=== PATIENT | female | born 1945 | race Hispanic/Latino ===

== ENCOUNTER 2018-09-14 18:40 | Emergency (ER) | payer MEDICARE ==
[~2018-09-14] VITALS: Ht 144.8 cm; Wt 53.1 kg
--- OUTSIDE RECORDS SUMMARY | 2018-09-14 18:42 | XMS REPORT | Summary of Care ---
Author Organization Unknown Address Unknown Phone Unavailable Encounter HQ Evanntr_kaden(LB) [id number] Date(s): 05/25/14 - 05/25/14 [facility] [address] Discharge Disposition: Home Physician Attending: Petrona Mcnally MD Physician_Referring: Juan R Nguyễn MD Reason for Visit ROUTINE Problem List No data available for this section Allergies, Adverse Reactions, Alerts No data available for this section Medications No data available for this section Medications Administered During Your Visit No data available for this section Immunizations No data available for this section
--- OUTSIDE RECORDS SUMMARY | 2018-09-14 18:42 | XMS REPORT | Summary of Care ---
Author Author [facility] [place] Organization [facility] [place] Address Unknown Phone Unavailable Encounter HQ Amy_kaden(FIN) [phone] Date(s): 06/30/17 - 06/30/17 [facility] [place] [address] [place] [phone] Discharge Disposition: Home or Self Care Attending Physician: Wyatt Cannon DO Vital Signs No data available for this section Problem List Condition Effective Dates Status Health Status Informant Actinic Active keratosis(Confirmed) Benign paroxysmal Active positional vertigo(Confirmed) Chronic gastritis1 02/08/13 Active Helicobacter-associa 09/13/14 Resolved ej gastritis2 Hernia of abdominal 07/20/13 Active wall3 Hip pain, Active bilateral(Confirmed) History of skin Resolved cancer(Confirmed) Bilateral impacted Resolved cerumen(Confirmed) Mixed 02/08/13 Active hyperlipidemia4 Need for Resolved prophylactic vaccination and inoculation against influenza(Confirmed) Osteoarthritis of Active both hips(Confirmed) Osteoporosis5 07/14/13 Active Polyarthralgia(Confi Active rmed) 1Data migrated from [employer] on 01/21/15. 2Data migrated from [employer] on 01/21/15. 3Data migrated from [employer] on 01/21/15. 4Data migrated from [employer] on 01/21/15. 5Data migrated from [employer] on 01/21/15. Allergies, Adverse Reactions, Alerts Substance Reaction Severity Status acetaminophen-codeine1 nausea MO^Moderate Active 1Data migrated from [employer] on 12/22/14. Originally documented as TYLENOL WITH CODEINE #3. nausea Medications No data available for this section Results No data available for this section Immunizations Given and Recorded Vaccine Date Status Refusal Reason Hx influenza vaccine-unspecified1 05/06/14 Given influenza virus vaccine, inactivated2 05/06/14 Given influenza virus vaccine, inactivated3 06/17/13 Given 1Result Comment: done high dose. Migrated from OBS ; Data migrated from [employer] on 09/26/2015. 2Result Comment: fluzone high dose [[id number]]. Migrated from OBS ; Data migrated from [employer] on 09/26/2015. 3Result Comment: fluzone (>3 yrs.) [[id number]]. Migrated from OBS ; Data migrated from [employer] on 09/26/2015. Procedures Procedure Date Related Diagnosis Body Site Esophagogastroduodenoscopy and dilation of 04/24/15 esophageal stricture1 Bilateral tubal ligation Cholecystectomy Excision of melanoma2 1GE Junction stricture, large hiatal hernia, gastritis 2left eyebrow Social History Social History Type Response Substance Abuse Use: None. Exercise 1 Employment/School Status: Retired. Work/School description: Retired from [employer]. Alcohol Never Smoking Status Never smoker; Exposure to Tobacco Smoke None; Cigarette Smoking Last 365 Days No; Reg Smoking Cessation Counseling No 1none Assessment and Plan No data available for this section
--- OUTSIDE RECORDS SUMMARY | 2018-09-14 18:42 | XMS REPORT | Summary of Care ---
Author Author [facility] [place] Organization [facility] [place] Address Unknown Phone Unavailable Encounter HQ Amy_kaden(FIN) [phone] Date(s): 01/12/16 - 01/12/[address] [facility] [place] [address] [place] [address]- [facility] [[email or web address]] [phone] Discharge Disposition: Home Attending Physician: Wyatt Cannon DO Vital Signs [...] No data available for this section Immunizations Vaccine Date Refusal Reason Hx influenza vaccine-unspecified1 05/06/14 influenza virus vaccine, inactivated2 05/06/14 influenza virus vaccine, inactivated3 06/17/13 1Result Comment: done high dose. Migrated from OBS ; Data migrated from [employer] on 09/26/2015. 2Result Comment: fluzone high dose [[id number]]. Migrated from OBS ; Data migrated from [employer] on 09/26/2015. 3Result Comment: fluzone (>3 yrs.) [[id number]]. Migrated from OBS ; Data migrated from [employer] on 09/26/2015. Procedures Procedure Date Related Diagnosis Body Site Esophagogastroduodenoscopy and dilation of 04/24/15 esophageal stricture1 Bilateral tubal ligation Cholecystectomy Excision of melanoma2 1GE Junction stricture, large hiatal hernia, gastritis 2left eyebrow Social History Social History Type Response Substance Abuse Use: None. Exercise 1 Employment/School Status: Retired. Work/School description: Retired from [employer]. Alcohol Never Smoking Status Never smoker; Exposure to Tobacco Smoke None; Cigarette Smoking Last 365 Days No; Reg Smoking Cessation Counseling No 1none Assessment and Plan No data available for this section
--- OUTSIDE RECORDS SUMMARY | 2018-09-14 18:42 | XMS REPORT | Continuity of Care Document ---
Author Author [facility] Interface Address Unknown Phone Unavailable Problems Problem Status Onset Date Classification Date Reported Comments Source Z12.31 - ENCNTR SCREEN MAMMOGRAM FOR MA Active 02/06/2017 [facility] [place] Helicobacter-associated gastritis<sup>2</sup> Resolved 09/13/2014 Problem 07/03/2017 Data migrated from [employer] on 01/21/15. [facility] [place] ROUTINE Active 05/19/2014 [place] Hernia of abdominal wall<sup>3</sup> Active 07/20/2013 Problem 07/03/2017 Data migrated from [employer] on 01/21/15. [facility] [place] Osteoporosis<sup>5</sup> Active 07/14/2013 Problem 07/03/2017 Data migrated from [employer] on 01/21/15. [facility] [place] Chronic gastritis<sup>1</sup> Active 02/08/2013 Problem 07/03/2017 Data migrated from [employer] on 01/21/15. [facility] [place] Mixed hyperlipidemia<sup>4</sup> Active 02/08/2013 Problem 07/03/2017 Data migrated from [employer] on 01/21/15. [facility] [place] Actinic keratosis Active Problem 07/03/2017 [facility] [place] Benign paroxysmal positional vertigo Active Problem 07/03/2017 [facility] [place] Hip pain, bilateral Active Problem 07/03/2017 [facility] [place] History of skin cancer Resolved Problem 07/03/2017 [facility] [place] Bilateral impacted cerumen Resolved Problem 07/03/2017 [facility] [place] Need for prophylactic vaccination and inoculation against influenza Resolved Problem 07/03/2017 [facility] [place] Osteoarthritis of both hips Active Problem 07/03/2017 [facility] [place] Polyarthralgia Active Problem 07/03/2017 [facility] [place] Medications Medication Details Route Status Patient Instructions Ordering Provider Order Date Source Allergies, Adverse Reactions, Alerts Substance Category Reaction Severity Reaction type Status Date Reported Comments Source acetaminophen-codeine<sup>1</sup> Assertion nausea MO^Moderate Propensity to adverse reactions to drug Active 02/08/2013 Data migrated from OnLive on 12/22/14. Originally documented as TYLENOL WITH CODEINE #3. nausea LAISHA Arndt Immunizations Immunization Date Given Site Status Last Updated Comments Source Hx influenza vaccine-unspecified<sup>1</sup> 05/06/2014 completed GE Result Comment: done high dose. Migrated from OBS ; Data migrated from OnLive on 09/26/2015. LAISHA Arndt influenza virus vaccine, inactivated<sup>2</sup> 05/06/2014 Left Deltoid completed GE Result Comment: fluzone high dose [[id number]]. Migrated from OBS ; Data migrated from OnLive on 09/26/2015. LAISHA Arndt influenza virus vaccine, inactivated<sup>3</sup> 06/17/2013 Right Deltoid completed GE Result Comment: fluzone (>3 yrs.) [[id number]]. Migrated from OBS ; Data migrated from OnLive on 09/26/2015. LAISHA Arndt Results Order Name Results Value Reference Range Date Interpretation Comments Source Bone Density DXA [employer] MA Bone Density DXA [employer] MA BONE DENSITY ASSESSMENT: 09/04/2018 CLINICAL DATA: Post menopausal and clinical risk for osteoporosis. M81.0 Age related osteoporosis. Age-Related Osteoporosis Without Current Pathological Fracture/M81.0 COMPARISON: 02/18/2017 Right hip using a Hologic unit from [facility] with reported high fracture risk, BMD of 0.586g/cm2, T-score of -2.90, and Z-score of -1.40. 02/18/2017 AP L1-L4 region of spine using a Hologic unit from [facility] with reported high fracture risk, BMD of 0.620g/cm2, T-score of -3.90, and Z-score of -1.80. 02/18/2017 Left hip using a Hologic unit from [facility] with reported high fracture risk, BMD of 0.528g/cm2, T-score of -3.40, and Z-score of -1.80. FINDINGS: Bone density evaluation was performed 09/04/2018 on the right femur neck using a Hologic unit. The BMD average for the exam is 0.565 g/cm2. The T-score is - 2.60 and the Z-score is -0.80. This matches the World Health Organization's criteria for osteoporosis and places the patient at a high risk for fracture. An additional bone density evaluation was performed 09/04/2018 on the left femur neck using a Hologic unit. The BMD average for the exam is 0.421 g/cm2. The T- score is -3.90 and the Z-score is -2.00. This matches the World Health Organization's criteria for osteoporosis and places the patient at a high risk for fracture. An additional bone density evaluation was performed 09/04/2018 on the right hip using a Hologic unit. The BMD average for the exam is 0.596 g/cm2. The T-score is -2.80 and the Z-score is -1.20. Since the previous similar exam of 02/18/2017, there has been a +0.010 or +1.7% change in the BMD value which represents no significant interval change in bone density. This matches the World Health Organization's criteria for osteoporosis and places the patient at a high risk for fracture. An additional bone density evaluation was performed 09/04/2018 on the left hip using a Hologic unit. The BMD average for the exam is 0.533 g/cm2. The T-score is -3.30 and the Z-score is -1.70. Since the previous similar exam of 02/18/2017, there has been a +0.005 or +0.9% change in the BMD value which represents no significant interval change in bone density. This matches the World Health Organization's criteria for osteoporosis and places the patient at a high risk for fracture. An additional bone density evaluation was performed 09/04/2018 on the AP L1-L4 region of spine using a Hologic unit. The BMD average for the exam is 0.609 g/cm2. The T-score is -4.00 and the Z-score is -1.80. Since the previous similar exam of 02/18/2017, there has been a -0.011 or -1.8% change in the BMD value which represents no significant interval change in bone density. This matches the World Health Organization's criteria for osteoporosis and places the patient at a high risk for fracture. IMPRESSION: OSTEOPOROSIS Patient is at high risk for fracture. Patient consult w/primary care provider is recommended. This exam was interpreted at [id number] for MISTY Copeland 15. Theresa Negrete M.D. ms/penrad:09/04/2018 15:20:42 Finger Waver(s): Irina WARNER(R)(M), [facility] 09/04/2018 - - Read by: Theresa Negrete MD Dictated Date/time: 09/04/18 15:20 Electronically Signed by: Theresa Negrete MD 09/04/18 15:20 FINAL REPORT GERMAIN Arndt Brain w/wo contrast MRI Brain w/wo contrast MRI PATIENT NAME: FRED DOSS : 1945; Age: 72 years y/o Female MR: [id number] STUDY: Brain w/wo contrast MRI 06/30/2017 3:17 PM JUNIOR ESTIMATOR ORDERING PHYSICIAN: VINICIUS LASSITER CLINICAL INDICATION: R51 Headache - R51 Headache; COMPARISON: None TECHNIQUE : Multiplanar imaging of the brain was obtained both prior to and after uncomplicated IV administration of 10 mL Dotarem. FINDINGS: BRAIN PARENCHYMA: There is no hemorrhage, mass lesion, extra axial collection, cerebral edema, or mass effect. Diffusion sequences are normal. Brain volume is age-appropriate. There are moderate periventricular and subcortical white matter signal abnormalities without mass effect. There are no cortical signal abnormalities.The cerebellar tonsils are above foramen magnum. The pituitary gland is age-appropriate. There is no abnormal enhancement. CEREBELLOPONTINE REGIONS AND SKULL BASE: The cerebellopontine angles appear unremarkable. No skull base abnormality is seen. VENTRICLES/SULCI/CISTERNS: The ventricles are normal in size and configuration. The basal cisterns are patent. VISUALIZED VESSELS: Major intracranial flow voids are preserved. ORBITS, VISUALIZED PARANASAL SINUSES AND MASTOIDS: Paranasal sinuses are clear. The mastoid air cells are clear. No orbital pathology is seen. IMPRESSION: 1. No intracranial mass lesion or hemorrhage 2. Moderate, nonspecific white matter signal abnormalities likely reflect migraine, chronic small vessel ischemia, or some combination of the two 06/30/2017 - - Read by: Manjit Acosta MD Dictated Date/time: 07/01/17 01:14 Electronically Signed by: Manjit Acosta MD 07/01/17 01:16 FINAL REPORT LAISHA Arndt Bone Density DXA Dual Energy MA Bone Density DXA Dual Energy MA - Bone Density DXA Dual Energy MA BONE DENSITY EVALUATION: 02/18/2017 CLINICAL DATA: Post menopausal and clinical risk for osteoporosis. COMPARISON: 01/12/2016 Right hip using a Hologic unit from [facility] with reported high fracture risk, BMD of 0.580g/cm2, T-score of -3.00 and Z-score of -1.50. 01/12/2016 Left hip using a Hologic unit from [facility] with reported high fracture risk, BMD of 0.522g/cm2, T-score of -3.40 and Z-score of -1.90. 01/12/2016 AP L1-L4 region of spine using a Hologic unit from [facility] with reported high fracture risk, BMD of 0.604g/cm2, T-score of -4.00 and Z-score of -2.00. FINDINGS: Bone density evaluation was performed 02/18/2017 on the AP L1-L4 region of spine using a Hologic unit. The BMD average for the exam is 0.620 g/cm2. The T-score is -3.90 and the Z-score is -1.80. Since the previous similar exam of 01/12/2016, there has been a +0.016 or +2.6% change in the BMD value which represents no significant interval change in bone density. This matches the World Health Organization's criteria for osteoporosis and places the patient at a high risk for fracture. An additional bone density evaluation was performed 02/18/2017 on the right femur neck using a Hologic unit. The BMD average for the exam is 0.468 g/cm2. The T-score is -3.40 and the Z-score is -1.70. This matches the World Health Organization's criteria for osteoporosis and places the patient at a high risk for fracture. An additional bone density evaluation was performed 02/18/2017 on the right hip using a Hologic unit. The BMD average for the exam is 0.586 g/cm2. The T-score is -2.90 and the Z-score is -1.40. Since the previous similar exam of 01/12/2016, there has been a +0.006 or +1.0% change in the BMD value which represents no significant interval change in bone density. This matches the World Health Organization's criteria for osteoporosis and places the patient at a high risk for fracture. An additional bone density evaluation was performed 02/18/2017 on the left femur neck using a Hologic unit. The BMD average for the exam is 0.408 g/cm2. The T- score is -4.00 and the Z-score is -2.20. This matches the World Health Organization's criteria for osteoporosis and places the patient at a high risk for fracture. An additional bone density evaluation was performed 02/18/2017 on the left hip using a Hologic unit. The BMD average for the exam is 0.528 g/cm2. The T-score is -3.40 and the Z-score is -1.80. Since the previous similar exam of 01/12/2016, there has been a +0.006 or +1.1% change in the BMD value which represents no significant interval change in bone density. This matches the World Health Organization's criteria for osteoporosis and places the patient at a high risk for fracture. IMPRESSION: OSTEOPOROSIS Patient is at high risk for fracture. Professional services are provided by the [facility]. This exam was dictated and interpreted by [id number] for MISTY Greer 15. Theresa Negrete M.D. ms/penrad:02/18/2017 15:08:35 Finger Waver: Irina WARNER(Marion)([place]), [facility] 02/18/2017 - - Read by: Theresa Negrete MD Dictated Date/time: 02/18/17 15:08 Electronically Signed by: Theresa Negrete MD 02/18/17 15:08 FINAL REPORT LAISHA Arndt Breast Mammo Scrn ORAL incl CAD MA Breast Mammo Scrn ORAL incl CAD MA - BREAST MAMMO SCRN ORAL INCL CAD MA BILATERAL DIGITAL SCREENING MAMMOGRAM WITH CAD: 02/18/2017 CLINICAL: Routine/Screening. Current study was evaluated with a Computer Aided Detection (CAD) system. Comparison is made to exams dated: 01/12/2016 mammogram - [facility], 05/25/2014 mammogram - [facility], 04/27/2013 mammogram, 01/07/2012 mammogram, 11/15/2010 mammogram and 09/27/2010 mammogram - [facility]. There are scattered fibroglandular densities in both breasts. There are benign vascular calcifications in both breasts. No significant masses, calcifications, or other findings are seen in either breast. There has been no significant interval change. IMPRESSION: BENIGN There is no mammographic evidence of malignancy. A 1 year screening mammogram is recommended. Professional services are provided by the [facility]. Theresa Negrete M.D. ms/penrad:02/18/2017 11:57:59 Finger Waver: Katherine WARNER(R)([place]), [facility] This exam was dictated and interpreted by [id number] for MISTY Greer 15. letter sent: Normal exam Mammogram BI-RADS: 2 Benign 02/18/2017 - - Read by: Theresa Negrete MD Dictated Date/time: 02/18/17 11:57 Electronically Signed by: Theresa Negrete MD 02/18/17 11:57 FINAL REPORT GERMAIN Arndt Digital Mammo Screening Oral MA Digital Mammo Screening Oral MA - DIGITAL MAMMO SCREENING ORAL MA BILATERAL DIGITAL SCREENING MAMMOGRAM WITH CAD: 01/12/2016 CLINICAL: Routine. Current study was evaluated with a Computer Aided Detection (CAD) system. Comparison is made to exams dated: 05/25/2014 mammogram - [facility], 04/27/2013 mammogram, 01/07/2012 mammogram, 11/15/2010 mammogram and 09/27/2010 mammogram - [facility]. There are scattered fibroglandular densities in both breasts. No significant masses, calcifications, or other findings are seen in either breast. There has been no significant interval change. IMPRESSION: NEGATIVE There is no mammographic evidence of malignancy. A 1 year screening mammogram is recommended. Damien Knight M.D. ks/penrad:01/12/2016 13:38:14 Finger Waver: [facility] This exam was dictated and interpreted by [id number] for GERMAIN Major. letter sent: Normal exam Mammogram BI-RADS: 1 Negative 01/12/2016 - - Read by: Damien Knight MD Dictated Date/time: 01/12/16 13:38 Electronically Signed by: Damien Knight MD 01/12/16 13:38 FINAL REPORT LAISHA Arndt Bone Density DXA Dual Energy MA Bone Density DXA Dual Energy MA - Bone Density DXA Dual Energy MA BONE DENSITY EVALUATION: 01/12/2016 CLINICAL DATA: Post menopausal. FINDINGS: Bone density evaluation was performed 01/12/2016 on the AP L1-L4 region of spine using a Hologic unit. The BMD average for the exam is 0.604 g/cm2. The T-score is -4.00 and the Z-score is -2.00. This matches the World Health Organization's criteria for osteoporosis and places the patient at a high risk for fracture. An additional bone density evaluation was performed 01/12/2016 on the right femur neck using a Hologic unit. The BMD average for the exam is 0.446 g/cm2. The T-score is -3.60 and the Z-score is -2.00. This matches the World Health Organization's criteria for osteoporosis and places the patient at a high risk for fracture. An additional bone density evaluation was performed 01/12/2016 on the right hip using a Hologic unit. The BMD average for the exam is 0.580 g/cm2. The T-score is -3.00 and the Z-score is -1.50. This matches the World Health Organization's criteria for osteoporosis and places the patient at a high risk for fracture. An additional bone density evaluation was performed 01/12/2016 on the left femur neck using a Hologic unit. The BMD average for the exam is 0.403 g/cm2. The T- score is -4.00 and the Z-score is -2.30. This matches the World Health Organization's criteria for osteoporosis and places the patient at a high risk for fracture. An additional bone density evaluation was performed 01/12/2016 on the left hip using a Hologic unit. The BMD average for the exam is 0.522 g/cm2. The T-score is -3.40 and the Z-score is -1.90. This matches the World Health Organization's criteria for osteoporosis and places the patient at a high risk for fracture. IMPRESSION: OSTEOPOROSIS Patient is at high risk for fracture. This exam was dictated and interpreted by [id number] for Eleazar. Brad May M.D. cm/penrad:01/17/2016 15:34:47 Finger Waver: Katherine WEISS)([place]), [facility] 01/12/2016 - - Read by: Paul Gonzáles MD Dictated Date/time: 01/17/16 15:34 Electronically Signed by: Paul Gonzáles MD 01/17/16 15:34 FINAL REPORT [facility] Digital Mammo Screening Oral MA Digital Mammo Screening Oral MA - DIGITAL MAMMO SCREENING ORAL MA BILATERAL DIGITAL SCREENING MAMMOGRAM WITH CAD: 05/25/2014 CLINICAL: Routine. Current study was evaluated with a Computer Aided Detection (CAD) system. Comparison is made to exams dated: 04/27/2013 mammogram, 01/07/2012 mammogram, 11/15/2010 mammogram and 09/27/2010 mammogram - [facility]. There are scattered fibroglandular densities in both breasts. There are benign vascular calcifications in both breasts. No significant masses, calcifications, or other findings are seen in either breast. There has been no significant interval change. IMPRESSION: BENIGN There is no mammographic evidence of malignancy. A screening mammogram in one year is recommended. Shaheen Wyman M.D. ap/penrad:05/25/2014 13:27:54 Finger Waver: Britni Campos, [facility] This exam was dictated and interpreted by [id number] for [facility]. letter sent: Normal exam Mammogram BI-RADS: 2 Benign 05/25/2014 - - Read by: Shaheen Wyman MD Dictated Date/time: 05/25/14 13:27 Electronically Signed by: Shaheen Wyman MD 05/25/14 13:27 FINAL REPORT [facility] Vital Signs Vital Sign Value Date Comments Source Encounters Location Location Details Encounter Type Encounter Number Reason For Visit Attending Provider ADM Date DC Date Status Source [facility] Outpatient [id number] Juan R Nguyễn 05/25/2014 05/26/2014 [facility] Outpatient [id number] DYLAN FERGUSON 05/25/2015 Active [facility] Outpatient [id number] DYLAN FERGUSON 06/27/2015 Active [facility] Outpatient [id number] DYLAN FERGUSON 06/29/2015 Active [facility] Outpatient [id number] DYLAN FERGUSON 10/30/2015 Active [facility] Outpatient [id number] DYLAN FERGUSON 10/31/2015 Active [facility] [place] [facility] [id number] Wyatt Cannon 01/12/2016 01/13/2016 [facility] [place] Outpatient [id number] DYLAN FERGUSON 03/07/2016 Active [facility] [place] [facility] [id number] Wyatt Cannon 02/18/2017 02/19/2017 [facility] [place] [place] [facility] [id number] Wyatt Cannon 06/30/2017 07/01/2017 [facility] [place] Procedures Procedure Code Date Perfomer Comments Source Esophagogastroduodenoscopy and dilation of esophageal stricture<sup>1</sup> [id number] 04/24/2015 GE Junction stricture, large hiatal hernia, gastritis [facility] [place] Bilateral tubal ligation [id number] [facility] [place] Cholecystectomy [id number] [facility] [place] Excision of melanoma<sup>2</sup> [id number] left eyebrow [facility] [place]
--- OUTSIDE RECORDS SUMMARY | 2018-09-14 18:42 | XMS REPORT | Summary of Care ---
Author Author [facility] [place] Organization [facility] [place] Address Unknown Phone Unavailable Encounter HQ Amy_kaden(FIN) [id number] Date(s): 02/18/17 - 02/18/17 [facility] [place] [address] [place] [phone] Discharge Disposition: Home or Self Care Attending [...] Migrated from OBS ; Data migrated from [employer] on 09/26/2015. 2Result Comment: fluzone high dose [[id number]]. Migrated from OBS ; Data migrated from [employer] on 09/26/2015. 3Result Comment: fluzone (>3 yrs.) [[id number]]. Migrated from OBS ; Data migrated from [employer] on 09/26/2015. Procedures Procedure Date Related Diagnosis Body Site Esophagogastroduodenoscopy and dilation of 04/24/15 esophageal stricture1 Bilateral tubal ligation Cholecystectomy Excision of melanoma2 1GE Junction stricture, large hiatal hernia, gastritis 2left eyebrow Social History Social History Type Response Substance Abuse Use: None. Exercise 1 Employment/School Status: Retired. Work/School description: Retired from [email or web address]. Alcohol Never Smoking Status Never smoker; Exposure to Tobacco Smoke None; Cigarette Smoking Last 365 Days No; Reg Smoking Cessation Counseling No 1none Assessment and Plan No data available for this section
[2018-09-14] MEDS ORDERED: ONDANSETRON HCL INJ 2 MG/ML VIAL IV STA (20:06)
[2018-09-14] MEDS ORDERED: SODIUM CHLORIDE 0.9% 1000ML 1,000 ML IV SCH (20:15)
[2018-09-14 20:45] LABS: BASOPHILS % 0.2 % (0.0-1.0); EOSINOPHILS % 0.1 % (0.0-6.0); HEMATOCRIT 41.6 % (34.2-44.1); HEMOGLOBIN 13.9 g/dL (12.0-16.0); LYMPHOCYTES # (AUTO) 2.1 (1.0-3.2); LYMPHOCYTES % 22.7 % (18.0-39.1); MEAN CORPUSCULAR HEMOGLOBIN 29.8 pg (28-32); MEAN CORPUSCULAR HGB CONC 33.4 g/dL (31-35); MEAN CORPUSCULAR VOLUME 89.1 fL (81-99); MONOCYTES # (AUTO) 0.4 (0.2-0.8); MONOCYTES % 4.7 % (4.4-11.3); NEUTROPHILS # (AUTO) 6.5 (2.1-6.9); NEUTROPHILS % 71.9 % (38.7-80.0); PLATELET COUNT 221 x10e3/uL (140-360); RED BLOOD COUNT 4.67 x10e6/uL (3.6-5.1); RED CELL DISTRIBUTION WIDTH 13.3 % (11.7-14.4)
--- NOTE | 2018-09-14 20:51 | Diagnostic Imaging Report ---
EXAMINATION: CXR 2 VIEW - HOPD INDICATION: Cough, vomiting, vertigo, headache COMPARISON: None FINDINGS: PA and lateral views TUBES and LINES: None. LUNGS: Lungs are well inflated. Lungs are clear. There is no evidence of pneumonia or pulmonary edema. PLEURA: No pleural effusion or pneumothorax. HEART AND MEDIASTINUM: The cardiomediastinal silhouette is unremarkable. There are atherosclerotic calcifications within the aorta. BONES AND SOFT TISSUES: No acute osseous lesion. Soft tissues are unremarkable. UPPER ABDOMEN: No free air under the diaphragm. There are cholecystectomy clips. IMPRESSION: No acute thoracic abnormality. Signed by: DR. Johan Chavira MD on 09/14/2018 8:47 PM
[2018-09-14] MEDS ORDERED: PROMETHAZINE-D118 ML PO (22:21)
== END 2018-09-14 22:36 | disposition home or self-care (01) ==
LOC: FSED 18:40
DX: R05 Cough (principal); H92.02 Otalgia, left ear; B34.9 Viral infection, unspecified; J00 Acute nasopharyngitis [common cold]; R73.9 Hyperglycemia, unspecified
CPT/HCPCS: 36415; 71046; 80053; 81003; 85025; 87400; 99283; J2405

== ENCOUNTER → 2020-04-10 | Day surgery (SDC) | payer MEDICARE, OTHER ==
[2020-04-05 09:39] LABS: BASOPHILS % 0.5 % (0.0-1.0); EOSINOPHILS # (AUTO) 0.1 (0.0-0.4); EOSINOPHILS % 1.5 % (0.0-6.0); HEMATOCRIT 40.3 % (34.2-44.1); HEMOGLOBIN 13.2 g/dL (12.0-16.0); LYMPHOCYTES # (AUTO) 2.7 (1.0-3.2); LYMPHOCYTES % 43.4 % (18.0-39.1); MEAN CORPUSCULAR HEMOGLOBIN 29.3 pg (28-32); MEAN CORPUSCULAR HGB CONC 32.8 g/dL (31-35); MEAN CORPUSCULAR VOLUME 89.4 fL (81-99); MONOCYTES # (AUTO) 0.5 (0.2-0.8); MONOCYTES % 7.5 % (4.4-11.3); NEUTROPHILS # (AUTO) 2.9 (2.1-6.9); NEUTROPHILS % 46.9 % (38.7-80.0); PLATELET COUNT 223 x10e3/uL (140-360); RED BLOOD COUNT 4.51 x10e6/uL (3.6-5.1); RED CELL DISTRIBUTION WIDTH 13.2 % (11.7-14.4)
--- NOTE | 2020-04-05 10:45 | Diagnostic Imaging Report ---
Examination: PA and lateral view of the chest. COMPARISON: None. INDICATION: Nausea, vomiting, preoperative DISCUSSION: Lines/tubes: None. Lungs: The lungs are well inflated and clear. No pneumonia or pulmonary edema. Pleura: No pleural effusion or pneumothorax. Heart and mediastinum: The heart and the mediastinum are unremarkable. Bones and soft tissues: No acute bony abnormalities. IMPRESSION: 1. No acute cardiopulmonary abnormalities. Signed by: Dr. Juan Francisco Keenan M.D. on 04/05/2020 10:42 AM
[~2020-04-10] VITALS: Ht 152.4 cm; Wt 52.2 kg
[~2020-04-10] MED LIST: AMBIEN5 MG PO; CALCIUM CARBON500 MG PO; CELEBREX100 MG PO; CRESTOR10 MG PO; FENTANYL CITRATE/PF 100MCG/2 ML INJ ONE; IBANDRONATE SO150 MG PO; KALYDECO150 MG; LIDOCAINE HCL 2% LOCAL INJ 5 ML SDV VIAL INJ ONE; METOCLOPRAMIDE HCL 10 MG/2ML VIAL ONE; MIDAZOLAM HCL 2 MG/2 ML VIAL ONE; OMEPRAZOLE40 MG PO; PANTOPRAZOLE 40 MG 10ML VIAL ONE; PROMETHAZINE-D118 ML PO; PROPOFOL IV EMULSION 10 MG/ML 20 ML VIAL ONE
[2020-04-10 10:40] VITALS: BP 118/71
--- NOTE | 2020-04-10 10:47 | Operative Report ---
DATE OF PROCEDURE: 04/10/2020 SURGEON: Shan Gomez MD PROCEDURE: EGD with esophageal dilatation and biopsies. INDICATIONS FOR EGD: Upper abdominal pain, dysphagia, nausea, and vomiting. MEDICATIONS: The patient was done under MAC, please see anesthesiologist's note. PROCEDURE IN DETAIL: With the patient in the left lateral decubitus position, the flexible fiberoptic Olympus gastroscope was introduced into the esophagus under direct visualization without any difficulty. There was some patchy erythema noted in distal esophagus. A mild stricture was noted at the GE junction that was dilated to size 52-Ukrainian Moore. The scope was then advanced with ease into the stomach traversing a large approximately 5 cm hiatal hernia. Mucosa overlying the antrum and the body revealed some patchy erythema and moderate edema, and biopsies were obtained and sent to stain for H. pylori. There was a localized intensely erythematous and somewhat raised area in the proximal body and that was biopsied. Pylorus was of normal contour and shape, was intubated with ease and the scope was advanced all the way to the second portion of the duodenum. Biopsies were obtained from the proximal second portion and the duodenal bulb to rule out sprue. The scope was then withdrawn back into the stomach and retroflexed, and the previously described large hiatal hernia was also noted in the retroflexed position. The scope was then straightened out, it was subsequently withdrawn, and the patient tolerated the procedure well. IMPRESSION: 1. Distal esophagitis, mild. 2. Esophageal stricture, GE junction, dilated to size 52-Ukrainian Moore. 3. Large hiatal hernia. 4. Gastritis, biopsied, biopsies sent to stain for Helicobacter pylori. 5. Rule out sprue. PLAN: Follow up histology. Increase omeprazole to 40 mg one p.o. before meals b.i.d. Shan Gomez MD [facility]/MODL /[id number] cc: Juan Francisco Cannon DO
== END | disposition home or self-care (01) ==
LOC: OR 04-03 18:30
PROVIDERS: ATTEND Internal Medicine Gastroenterology
DX: K29.50 Unspecified chronic gastritis without bleeding (principal); K20.9 Esophagitis, unspecified; K22.2 Esophageal obstruction; K44.9 Diaphragmatic hernia without obstruction or gangrene; M19.90 Unspecified osteoarthritis, unspecified site; Z87.11 Personal history of peptic ulcer disease; Z90.49 Acquired absence of other specified parts of digestive tract; Z01.810 Encounter for preprocedural cardiovascular examination; Z01.812 Encounter for preprocedural laboratory examination; Z01.818 Encounter for other preprocedural examination; Z11.59 Encounter for screening for other viral diseases; K21.9 Gastro-esophageal reflux disease without esophagitis; F41.9 Anxiety disorder, unspecified; Z88.5 Allergy status to narcotic agent
CPT/HCPCS: 36415; 43239; 43450; 71046; 85025; 93005; C9113; J2001; J2704; J2765; U0002; J2250; J3010

== ENCOUNTER 2020-07-07 11:57 | Emergency (ER) | payer MEDICARE ==
[~2020-07-07] VITALS: Ht 144.8 cm; Wt 52.6 kg
[~2020-07-07 11:57] MED LIST changes: -FENTANYL CITRATE/PF 100MCG/2 ML INJ ONE; -LIDOCAINE HCL 2% LOCAL INJ 5 ML SDV VIAL INJ ONE; -METOCLOPRAMIDE HCL 10 MG/2ML VIAL ONE; -MIDAZOLAM HCL 2 MG/2 ML VIAL ONE; -PANTOPRAZOLE 40 MG 10ML VIAL ONE; -PROPOFOL IV EMULSION 10 MG/ML 20 ML VIAL ONE
== END 2020-07-07 12:47 | disposition home or self-care (01) ==
LOC: ER 12:28
DX: U07.1 COVID-19 (principal); R50.9 Fever, unspecified; R05 Cough; K21.9 Gastro-esophageal reflux disease without esophagitis
CPT/HCPCS: 99283

== ENCOUNTER → 2021-03-19 | Day surgery (SDC) | payer MEDICARE ==
[~2021-03-19] MED LIST changes: +AMBIEN PO; +CELEBREX200 MG PO; +FENTANYL CITRATE/PF 100MCG/2 ML INJ ONE; +FORTEO2.4 ML SC; +LIDOCAINE HCL 2% LOCAL INJ 5 ML SDV VIAL INJ ONE; +PROPOFOL IV EMULSION 10 MG/ML 20 ML VIAL ONE
== END | disposition home or self-care (01) ==
LOC: OR 06:44
PROVIDERS: ATTEND Internal Medicine Gastroenterology
DX: K29.60 Other gastritis without bleeding (principal); K20.90 Esophagitis, unspecified without bleeding; K21.9 Gastro-esophageal reflux disease without esophagitis; K44.9 Diaphragmatic hernia without obstruction or gangrene; M81.0 Age-related osteoporosis without current pathological fracture; E78.5 Hyperlipidemia, unspecified; M19.90 Unspecified osteoarthritis, unspecified site; G47.00 Insomnia, unspecified; Z88.6 Allergy status to analgesic agent
CPT/HCPCS: 43239; J2001; J2704; J3010

== ENCOUNTER → 2024-04-30 | Outpatient (REF) | payer MEDICARE ==
[~2024-04-30] MED LIST changes: -FENTANYL CITRATE/PF 100MCG/2 ML INJ ONE; -LIDOCAINE HCL 2% LOCAL INJ 5 ML SDV VIAL INJ ONE; +ONDANSETRON ODT4 MG PO; +PEPCID20 MG PO; -PROPOFOL IV EMULSION 10 MG/ML 20 ML VIAL ONE
[2024-04-30 16:04] LABS: CREATININE, SERUM 0.83 mg/dL (0.57-1.11)
== END ==
LOC: CT 14:39
PROVIDERS: ATTEND Family Medicine
DX: R19.7 Diarrhea, unspecified (principal)
CPT/HCPCS: 36415; 74177; 82565; 84520